=== PATIENT | female | born 1950 | race Caucasian/White ===

== ENCOUNTER 2020-10-21 14:32 | Observation (INO) ==
[2020-10-21] MEDS ORDERED: Morphine Sulfate 2 MG/ML SYRINGE IVP ONE (15:03)
[2020-10-21] MEDS ORDERED: Ondansetron 4 MG/2 ML VIAL IVP ONE (15:03)
[2020-10-21 15:30] LABS: Basophils % 0.3 %; Eosinophils # 0.1 K/mcL (0.0-0.6); Eosinophils % 1.4 %; Hematocrit 37.8 % (35.3-44.9); Hemoglobin 12.1 g/dL (11.5-15.4); Immature Granulocytes % 0.3 % (0-4); Lymphocytes # 2.1 K/mcL (0.6-4.6); Lymphocytes % 29.8 %; Mean Corpuscular Hemoglobin 30.3 pg (28.0-33.3); Mean Corpuscular Volume 94.7 fL (83.0-100.0); Mean Platelet Volume 8.9 fL (9.4-12.4); Monocytes # 0.6 K/mcL (0.0-1.3); Monocytes % 8.9 %; Neutrophils # 4.3 K/mcL (1.6-8.9); Platelet Count 239 K/mcL (140-400); Red Blood Count 3.99 M/mcL (3.82-4.97); Red Cell Distribution Width 14.6 % (11.5-14.5); Segmented Neutrophils % 59.3 %; White Blood Count 7.2 K/mcL (4.3-11.1)
[2020-10-21] MEDS ORDERED: Aspirin 81 MG TAB.CHEW PO ONE (15:31)
[2020-10-21 15:50] LABS: Alanine Aminotransferase 40 Units/L (7-52); Albumin/Globulin Ratio 1.4 (1.1-2.2); Alkaline Phosphatase 96 Units/L (34-104); Aspartate Amino Transferase 57 Units/L (13-39); BUN/Creatinine Ratio 14 (6-26); Bilirubin,Total 0.4 mg/dL (0.3-1.0); Blood Urea Nitrogen 13 mg/dL (8-23); Calcium 9.3 mg/dL (8.6-10.3); Carbon Dioxide 28 mEq/L (23-29); Chloride 106 mEq/L (98-107); Globulin 2.8 g/dL (2.4-3.5); Glucose 106 mg/dL (70-105); Lipase 44 Units/L (11-82); Osmolality,Calculated 295 (280-300); Potassium 3.9 mEq/L (3.5-5.1); Sodium 142 mEq/L (136-145); Total Protein 6.8 g/dL (6.4-8.9); eGFR For African Americans > 60 (> 60); eGFR For Non-African Americans > 60 (> 60)
[2020-10-21] MEDS ORDERED: cefOXitin 1,000 MG in D5% in Water (Mini-Bag+) 100 ML IVPB ONE (16:36)
[2020-10-21] MEDS: 0.9 % Sodium Chloride 1,000 ML IVC SCH (18:05)
[2020-10-22] MEDS: Ondansetron 4 MG/2 ML VIAL IVP SCH ×2 (00:06→06:18)
[2020-10-22] MEDS: MetroNIDAZOLE 500 MG/100 ML 500 MG/100 ML BAG IVPB SCH ×2 (00:07→06:18)
[2020-10-22] MEDS: 0.9 % Sodium Chloride 1,000 ML IVC SCH ×4 (03:17→11:16)
[2020-10-22] MEDS: Pregabalin 50 MG CAPSULE PO SCH ×2 (07:45→07:46)
[2020-10-22] MEDS ORDERED: *HR* FentaNYL (PF) 100 MCG/2 ML VIAL ONE (08:51)
[2020-10-22] MEDS ORDERED: *HR* Rocuronium Bromide 50 MG/5 ML VIAL ONE (08:51)
[2020-10-22] MEDS ORDERED: Lidocaine -MPF 2% 2 ML VIAL ONE (08:51)
[2020-10-22] MEDS ORDERED: *HR* Succinylcholine 200 MG/10 ML VIAL IVP ONE (08:51)
[2020-10-22] MEDS ORDERED: *HR* Midazolam HCl 2 MG/2 ML VIAL ONE (08:51)
[2020-10-22] MEDS ORDERED: *HR* Propofol 200 MG/20 ML VIAL IVP ONE (08:52)
[2020-10-22] MEDS ORDERED: *HR* OxyCODONE Immed Rel 5 MG TABLET PO PRN (08:55)
[2020-10-22] MEDS ORDERED: *HR* FentaNYL (PF) 100 MCG/2 ML VIAL IVP PRN (08:55)
[2020-10-22] MEDS ORDERED: Ondansetron 4 MG/2 ML VIAL IVP PRN (08:55)
[2020-10-22] MEDS ORDERED: Ketorolac 15 MG/ML VIAL IVP PRN (08:55)
[2020-10-22] MEDS ORDERED: Ringers Solution, Lactated 1,000 ML IVC SCH (09:00)
[2020-10-22] MEDS ORDERED: Lidocaine HCL 4 ML Topical Solution (Laryng-O-Jet Kit Sterile Pak) TP ONE (09:21)
[2020-10-22] MEDS ORDERED: Neostigmine Methylsulfate 3 MG/3 ML SYRINGE ONE (10:01)
[2020-10-22] MEDS ORDERED: Ketorolac 30 MG/ML VIAL ONE (10:10)
[2020-10-22] MEDS ORDERED: *HR* OxyCODONE/APAP 5/325 TABLET PO PRN (11:14)
[2020-10-22] MEDS ORDERED: MetroNIDAZOLE 500 MG/100 ML 500 MG/100 ML BAG IVPB SCH (12:00)
[2020-10-22] MEDS ORDERED: Ondansetron 4 MG/2 ML VIAL IVP SCH (12:00)
[2020-10-22 13:12] VITALS: BP 129/84
[2020-10-23] MEDS ORDERED: Pregabalin 50 MG CAPSULE PO SCH (09:00)
== END 2020-10-22 15:53 | disposition home or self-care (01) ==
LOC: 3BNU 14:32 → EMEROOARM 14:32 → 3BNU 19:41
PROVIDERS: ADMIT Surgery; ATTEND Surgery